=== PATIENT | male | born 1980 | race Caucasian/White ===

== ENCOUNTER 2016-08-02 14:44 | Emergency (ER) | payer MEDICAID, OTHER ==
[~2016-08-02] VITALS: Ht 180.3 cm; Wt 96.2 kg
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
[2016-08-02] MEDS ORDERED: SILVER SULFADIAZINE 50 GM CREAM ONE (15:28)
[2016-08-02] MEDS ORDERED: HYDR-3812 PO (15:42)
[2016-08-02] MEDS ORDERED: SILV20CR14 TP (15:42)
[2016-08-02 15:48] VITALS: BP 130/104
[2016-08-03] MEDS ORDERED: SILVER SULFADIAZINE 50 GM CREAM TOP SCH (09:00)
== END 2016-08-02 15:48 | disposition home or self-care (01) ==
LOC: EDUNIT# 14:44 → ER 14:47
DX: T22.191A Burn of first degree of multiple sites of right shoulder and upper limb, except wrist and hand, initial encounter (principal); T31.0 Burns involving less than 10% of body surface; X12.XXXA Contact with other hot fluids, initial encounter; Y92.410 Unspecified street and highway as the place of occurrence of the external cause; Y99.8 Other external cause status
CPT/HCPCS: 99282

== ENCOUNTER 2016-08-05 09:01 | Emergency (ER) | payer MEDICAID ==
[~2016-08-05] VITALS: Ht 180.3 cm; Wt 96.2 kg
[~2016-08-05 09:01] MED LIST: HYDR-3812 PO; SILV20CR14 TP
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
[2016-08-05 09:51] VITALS: BP 132/99
[2016-08-05] MEDS ORDERED: BACITRACIN OINTMENT 28 GM TUBE TOP SCH (21:00)
== END 2016-08-05 09:48 | disposition home or self-care (01) ==
LOC: EDUNIT# 09:01 → ER 09:03
DX: T22.211A Burn of second degree of right forearm, initial encounter (principal); X11.8XXA Contact with other hot tap-water, initial encounter; Y93.G1 Activity, food preparation and clean up; Y99.0 Civilian activity done for income or pay